=== PATIENT | male | born 1965 | race Caucasian/White ===

== ENCOUNTER 2019-05-28 14:21 | Emergency (ER) | payer MEDICARE ==
[~2019-05-28] VITALS: Ht 182.9 cm; Wt 64.4 kg
[2019-05-28] MEDS: HYDROcodone/APAP 5/325MG 1 TAB TABLET PO ONE (15:28)
--- NOTE | 2019-05-28 16:01 | RAD ---
EXAM: Right lower extremity venous Doppler sonogram. HISTORY: Pain and swelling. TECHNIQUE: Keller scale and color Doppler sonographic evaluation of the right lower extremity veins with spectral waveform analysis was performed. FINDINGS: There is normal color flow, normal compressibility and there are normal spectral waveforms in the common femoral, superficial femoral, popliteal, posterior tibial and greater saphenous veins. There is a complex suspected fluid collection along the lateral mid to distal right thigh at the site of palpable concern measuring 4.6 x 4.2 x 2.6 cm. IMPRESSION: 1. No Doppler evidence of lower extremity deep venous thrombosis. 2. 4.6 cm complex lesion within the lateral mid distal thigh at the site of palpable concern, the appearance of which favors a hematoma. Correlate for recent trauma. Follow-up is recommended to confirm resolution and exclude an underlying lesion. Electronically signed by: Anna Erickson MD (05/28/2019 3:58 PM) [facility]
--- NOTE | 2019-05-28 16:10 | PHYS DOC ---
Past Medical History Past Medical History: COPD, DVT, ID Past Surgical History: Other Additional Past Surgical Histo: HERNIA Alcohol Use: Occasionally Drug Use: None Adult General Chief Complaint Chief Complaint: LOWER EXT PAIN HPI HPI Patient is a 53 year old with history of COPD, ID, DVT and currently on Coumadin who presents with complaining of right thigh pain and DVT. Patient states he has had a heart area and right thigh since yesterday and thinks he has DVT. Patient states he is currently taking Coumadin because of history of previous DVT and his INR was 1.1. Patient denies shortness of breath, fever and chills, nausea and vomiting, chest pain. Review of Systems Review of Systems Constitutional: Denies fever or chills [] Eyes: Denies change in visual acuity, redness, or eye pain [] HENT: Denies nasal congestion or sore throat [] Respiratory: Denies cough or shortness of breath [] Cardiovascular: No additional information not addressed in HPI [] GI: Denies abdominal pain, nausea, vomiting, bloody stools or diarrhea [] : Denies dysuria or hematuria [] Musculoskeletal: Denies back pain, reports joint pain [] Integument: Denies rash or skin lesions [] Neurologic: Denies headache, focal weakness or sensory changes [] Endocrine: Denies polyuria or polydipsia [] All other systems were reviewed and found to be within normal limits, except as documented in this note. Current Medications Current Medications Current Medications Medications (Trade) Dose Ordered Sig/Anupama Start Time Stop Time Status Last Admin Dose Admin Acetaminophen/ Hydrocodone Bitart (Lortab 5/325) 1 tab 1X ONCE 05/28/19 15:30 05/28/19 15:31 DC 05/28/19 15:28 1 TAB Allergies Allergies Allergies Coded Allergies Type Severity Reaction Last Updated Verified amoxicillin Allergy Unknown 05/28/19 Yes Physical Exam Physical Exam Constitutional: Well developed, well nourished, mild distress, non-toxic appearance. [] HENT: Normocephalic, small old ecchymosis of right eyelid Eyes: PERRLA, EOMI, conjunctiva normal, no discharge. [] Neck: Normal range of motion, no tenderness, supple, no stridor. [] Cardiovascular:Heart rate regular rhythm, no murmur [] Lungs & Thorax: Bilateral breath sounds clear to auscultation [] Skin: Warm, dry, no erythema, no rash. [] Back: No tenderness, no CVA tenderness. [] Extremities: Large ecchymosis and contusion of right shoulde, tendern large area of bulging in anterior side of the right thigh, no cyanosis, no clubbing, ROM intact, no edema. [] Neurologic: Alert and oriented X 3, no focal deficits noted. [] Psychologic: Affect anxious, judgement normal, mood normal. [] Current Patient Data Vital Signs Vital Signs Date Time Temp Pulse Resp B/P (MAP) Pulse Ox O2 Delivery O2 Flow Rate FiO2 05/28/19 17:48 62 141/89 (106) 99 Room Air 05/28/19 14:50 98.0 16 98.0 Lab Values Laboratory Tests Test 05/28/19 16:40 White Blood Count 10.9 x10^3/uL (4.0-11.0) Red Blood Count 4.18 x10^6/uL (4.30-5.70) L Hemoglobin 13.8 g/dL (13.0-17.5) Hematocrit 40.3 % (39.0-53.0) Mean Corpuscular Volume 96 fL (79-100) Mean Corpuscular Hemoglobin 33 pg (25-35) Mean Corpuscular Hemoglobin Concent 34 g/dL (31-37) Red Cell Distribution Width 15.2 % (11.5-14.5) H Platelet Count 302 x10^3/uL (140-400) Prothrombin Time 35.3 SEC (11.7-14.0) H Prothrombin Time INR 3.5 (0.8-1.1) H Sodium Level 135 mmol/L (136-145) L Potassium Level 3.7 mmol/L (3.5-5.1) Chloride Level 100 mmol/L (98-107) Carbon Dioxide Level 27 mmol/L (21-32) Anion Gap 8 (6-14) Blood Urea Nitrogen 5 mg/dL (8-26) L Creatinine 0.8 mg/dL (0.7-1.3) Estimated GFR (Cockcroft-Gault) 101.1 BUN/Creatinine Ratio 6 (6-20) Glucose Level 105 mg/dL (70-99) H Calcium Level 9.2 mg/dL (8.5-10.1) Total Bilirubin 0.9 mg/dL (0.2-1.0) Aspartate Amino Transferase (AST) 28 U/L (15-37) Alanine Aminotransferase (ALT) 18 U/L (16-63) Alkaline Phosphatase 90 U/L (46-116) Total Protein 7.5 g/dL (6.4-8.2) Albumin 3.8 g/dL (3.4-5.0) Albumin/Globulin Ratio 1.0 (1.0-1.7) Laboratory Tests 05/28/19 16:40 Laboratory Tests 05/28/19 16:40 EKG EKG [] Radiology/Procedures Radiology/Procedures [][facility] [address] [place] [address] IMAGING REPORT Signed PATIENT: JOSEPH KINSEY ACCOUNT: [id number] : 1965 LOCATION: ER AGE: 53 SEX: M EXAM STATUS: REG ER ORD. PHYSICIAN: HENRY DAVISON MD REASON: lower extremity pain PROCEDURE: VENOUS LOWER EXTREMITY RIGHT EXAM: Right lower extremity venous Doppler sonogram. HISTORY: Pain and swelling. TECHNIQUE: Keller scale and color Doppler sonographic evaluation of the right lower extremity veins with spectral waveform analysis was performed. FINDINGS: There is normal color flow, normal compressibility and there are normal spectral waveforms in the common femoral, superficial femoral, popliteal, posterior tibial and greater saphenous veins. There is a complex suspected fluid collection along the lateral mid to distal right thigh at the site of palpable concern measuring 4.6 x 4.2 x 2.6 cm. IMPRESSION: 1. No Doppler evidence of lower extremity deep venous thrombosis. 2. 4.6 cm complex lesion within the lateral mid distal thigh at the site of palpable concern, the appearance of which favors a hematoma. Correlate for recent trauma. Follow-up is recommended to confirm resolution and exclude an underlying lesion. Electronically signed by: Anna Harris MD (05/28/2019 3:58 PM) [facility] DICTATED and SIGNED BY: ANNA HARRIS MD DATE: 05/28/19 1558 [facility] [address] [place], [place] [id number] IMAGING REPORT Signed PATIENT: JOSEPH KINSEY ACCOUNT: [id number] : 1965 LOCATION: ER AGE: 53 SEX: M EXAM STATUS: REG ER ORD. PHYSICIAN: HENRY DAVISON MD REASON: falls PROCEDURE: CT HEAD WO CONTRAST EXAM: Head CT without contrast. HISTORY: Fall. TECHNIQUE: Computed tomographic images of the head were obtained without contrast. *One or more of the following individualized dose reduction techniques were utilized for this examination: 1. Automated exposure control. 2. Adjustment of the mA and/or kV according to patient size. 3. Use of iterative reconstruction technique. COMPARISON: None. FINDINGS: There is no acute or subacute extra-axial or intraparenchymal hemorrhage. There is no mass effect or midline shift. There is no hydrocephalus. There are areas of decreased attenuation within the cerebral white matter, nonspecific and likely related to chronic small vessel disease. The visualized portions of the orbits, paranasal sinuses and mastoid air cells are unremarkable. No suspicious calvarial lesion is seen. IMPRESSION: No acute intracranial findings. Electronically signed by: Anna Harris MD (05/28/2019 4:59 PM) [facility] DICTATED and SIGNED BY: ANNA HARRIS MD DATE: 05/28/191658 Course & Med Decision Making Course & Med Decision Making Pertinent Labs and Imaging studies reviewed. (See chart for details) Evaluation of patient in ER showed 52-year-old male patient who presented with complaining of DVT in the right eye. Patient had a hematoma right thigh and ecchymosis of right side of face and right shoulder. Patient admitted drinking alcohol and having fall. Patient stated his INR was 1.1. Later on he stated his INR this morning. 4.1 because he took 10 mg extra Coumadin last night with concern of having a new DVT. INR of 3.5 and was advised to afford Coumadin for 2 days and avoid of drinking alcohol and follow up with his primary care physician regarding management of his INR. I've spoken with the patient and/or caregivers. I've explained the patient's condition, diagnosis and treatment plan based on information available to me at this time. I've answered the patient's and/or caregivers questions and addressed any concerns. The patient and/or caregivers have a good understanding the patient's diagnosis, condition and treatment plan as can be expected at this point. Vital signs have been stabilized. The patient's condition is stable for discharge from the emergency department. The patient will pursue further outpatient evaluation with her primary care provider or other designated consulting physician as outlined in the discharge instructions. Patient and/or caregivers are agreeable to this plan of care and follow-up instructions have been explained in detail. The patient and/or caregivers have received these instructions in written format and expressed understanding of these discharge instructions. The patient and her caregivers are aware that if any significant change in condition or worsening of symptoms should prompt him to immediately return to this of the closest emergency department. If an emergent department is not readily available I would encourage him to call 911. Kacie Disclaimer Kacie Disclaimer This electronic medical record was generated, in whole or in part, using a voice recognition dictation system. Departure Departure Impression: Primary Impression: Hematoma of right thigh Additional Impressions: Traumatic hematoma of right shoulder Bleeding on Coumadin Alcohol abuse Disposition: HOME, SELF-CARE (at 1758) Condition: STABLE Referrals: UNKNOWN PCP NAME (PCP) Patient Instructions: Hematoma, Warfarin Coagulopathy, Warfarin, Questions and Answers Additional Instructions: Drink plenty of liquids Follow-up with your primary care physician in 3-5 days Return to ER if not getting better Stop drinking alcohol about Do not take Coumadin for 2 days Scripts Hydrocodone/Apap 5-325 (NORCO 5-325 TABLET) 1 Each Tablet 1 TAB PO PRN Q6HRS PRN for PAIN, #8 TAB 0 Refills Prov: HENRY DAVISON MD 05/28/19 Problem Qualifiers Primary Impression: Hematoma of right thigh Encounter type: initial encounter Qualified Codes: S70.11XA - Contusion of right thigh, initial encounter Additional Impressions: Traumatic hematoma of right shoulder Encounter type: subsequent encounter Qualified Codes: S40.011D - Contusion of right shoulder, subsequent encounter HENRY DAVISON MD May 28, 2019 16:10
[2019-05-28 17:01] LABS: HEMATOCRIT 40.3 % (39.0-53.0); HEMOGLOBIN 13.8 g/dL (13.0-17.5); RED BLOOD COUNT 4.18 x10^6/uL (4.30-5.70); RED CELL DISTRIBUTION WIDTH 15.2 % (11.5-14.5); WHITE BLOOD COUNT 10.9 x10^3/uL (4.0-11.0)
--- NOTE | 2019-05-28 17:01 | RAD ---
EXAM: Head CT without contrast. HISTORY: Fall. TECHNIQUE: Computed tomographic images of the head were obtained without contrast. *One or more of the following individualized dose reduction techniques were utilized for this examination: 1. Automated exposure control. 2. Adjustment of the mA and/or kV according to patient size. 3. Use of iterative reconstruction technique. COMPARISON: None. FINDINGS: There is no acute or subacute extra-axial or intraparenchymal hemorrhage. There is no mass effect or midline shift. There is no hydrocephalus. There are areas of decreased attenuation within the cerebral white matter, nonspecific and likely related to chronic small vessel disease. The visualized portions of the orbits, paranasal sinuses and mastoid air cells are unremarkable. No suspicious calvarial lesion is seen. IMPRESSION: No acute intracranial findings. Electronically signed by: Anna Erickson MD (05/28/2019 4:59 PM) [place] [id number]
[2019-05-28 17:10] LABS: PROTHROMBIN TIME PATIENT 35.3 SEC (11.7-14.0)
[2019-05-28 17:16] LABS: CALCIUM 9.2 mg/dL (8.5-10.1); CREATININE 0.8 mg/dL (0.7-1.3); GFR 101.1; POTASSIUM 3.7 mmol/L (3.5-5.1)
[2019-05-28 17:29] LABS: ALBUMIN 3.8 g/dL (3.4-5.0); TOTAL BILIRUBIN 0.9 mg/dL (0.2-1.0); TOTAL PROTEIN 7.5 g/dL (6.4-8.2)
[2019-05-28 17:48] VITALS: BP 141/89
[2019-05-28] MEDS ORDERED: HYDR-3164 PO (18:03)
== END 2019-05-28 18:18 | disposition home or self-care (01) ==
LOC: ER 14:21
DX: S70.11XA Contusion of right thigh, initial encounter (principal); S40.011A Contusion of right shoulder, initial encounter; D68.32 Hemorrhagic disorder due to extrinsic circulating anticoagulants; R51 Headache; J44.9 Chronic obstructive pulmonary disease, unspecified; I25.2 Old myocardial infarction; Z86.718 Personal history of other venous thrombosis and embolism; Z88.1 Allergy status to other antibiotic agents; Z79.01 Long term (current) use of anticoagulants; X58.XXXA Exposure to other specified factors, initial encounter; Y93.89 Activity, other specified; Y92.89 Other specified places as the place of occurrence of the external cause; Y99.8 Other external cause status
CPT/HCPCS: 36415; 70450; 80053; 85027; 85610; 93971; 99285-25